=== PATIENT | male | born 1960 | race Caucasian/White ===

== ENCOUNTER 2017-02-24 14:38 | Emergency (ER) | payer SELFPAY ==
--- NOTE | 2017-03-04 10:17 | ER ---
ADMIT: 02/24/2017 RM/LOC: ER [facility] MR#: [id number] [id number] [facility] C[facility] [address] Emergency Room Report SEX: M AGE: 56 : 1960 DATE: ADDENDUM: CHIEF COMPLAINT: Abscess to left posterior shoulder. 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 He has noticed that on the side it has become red, erythemic, and swollen. I did do an incision and drain of the abscess. Told him to follow up with Dr. Ferraro, a custom bike builder as scheduled at the end of this month to have the lipoma removed. CLINICAL IMPRESSION: Abscess to left posterior shoulder. DISPOSITION: Sent him home with Bactrim and Keflex. Told him to use warm compresses, and I am prescribing a few [place] for pain today. RAFFI Savage / Zay Arrieta MD / shanon JOB #: [id number] CC: Chad Gupta MD, Attending Physician UNKNOWN, Family Physician
== END 2017-02-24 15:26 | disposition home or self-care (01) ==
LOC: ER 14:38
PROC: 0H9CXZZ Drainage of Left Upper Arm Skin, External Approach (ICD-10-PCS; principal; 2017-02-24)
DX: L02.414 Cutaneous abscess of left upper limb (principal); F17.210 Nicotine dependence, cigarettes, uncomplicated; Z88.0 Allergy status to penicillin